=== PATIENT | female | born 1980 | race Two or more races ===

== ENCOUNTER 2024-09-03 23:14 | Emergency (ER) | payer MEDICAID, SELFPAY ==
[2024-09-03 23:15] VITALS: BP 184/93; PULSE 106; RESP 20; TEMP 37.8; O2SAT 97; BMI 40.3
--- NOTE | 2024-09-03 23:32 | PD.EDRME ---
Rapid Medical Screening Exam RME Arrival date/time: 09/03/24 23:14 44 year old female present to ED for c/o of headache, elevated bp and flu like sx. I have greeted and performed a focused initial assessment of this patient. A comprehensive ED assessment and evaluation of the patient, analysis of all test results, and completion of the medical decision making process will be conducted by additional ED providers. Chief Complaint: Headache Vital signs: Vital Signs Temperature 100.0 F 09/03/24 23:15 Pulse Rate 106 H 09/03/24 23:15 Respiratory Rate 20 09/03/24 23:15 Blood Pressure 184/93 H 09/03/24 23:15 Pulse Oximetry (%) 97 09/03/24 23:15
[2024-09-03 23:56] LABS: Basophils # (Auto) 0.1 Thou/mm3 (0.0-0.2); Basophils % (Auto) 1 % (0-2.5); Eosinophils # (Auto) 0.2 Thou/mm3 (0.0-0.5); Eosinophils % (Auto) 4 % (0-10); Hematocrit 37.2 % (36.0-46.0); Hemoglobin 11.9 g/dL (12.0-16.0); Immature Granulocytes % (Auto) 1 % (0-0); Immature Granulocytes Auto 0.03 Thou/mm3 (0.00-0.00); Lymphocytes # (Auto) 1.7 Thou/mm3 (1.0-4.8); Lymphocytes % (Auto) 29 % (10-50); Mean Corpuscular Hemoglobin 24.1 pg (25.0-35.0); Mean Corpuscular Volume 76 fL (80-100); Monocytes # (Auto) 0.6 Thou/mm3 (0.0-0.8); Monocytes % (Auto) 11 % (0-12); Neutrophils # (Auto) 3.2 Thou/mm3 (1.8-7.7); Neutrophils % (Auto) 55 % (37-80); Nucleated Red Blood Cell % 0 /100 WBC (0); Platelet Count 196 Thou/mm3 (140-440); RDW Standard Deviation 45.5 fL (36.4-46.3); Red Blood Count 4.93 Miln/mm3 (4.00-5.20); White Blood Count 5.8 Thou/mm3 (3.6-11.0)
[2024-09-04 00:07] LABS: Collection Type, Urine Voided; WBC,Urine 0 /hpf (0-5)
[2024-09-04 00:08] LABS: Alanine Aminotransferase 57 U/L (10-49); Albumin, Serum 4.5 gm/dL (3.5-5.0); Albumin/Globulin Ratio 1.3 (1.2-2.2); Alkaline Phosphatase 76 U/L (46-116); Anion Gap 6 (7-16); Aspartate Amino Transferase 37 U/L (0-34); BUN/Creatinine Ratio 15 Ratio (12-20); Bilirubin,Total 0.3 mg/dL (0.3-1.2); Blood Urea Nitrogen 9 mg/dL (9-23); Calcium 9.4 mg/dL (8.3-10.6); Calcium (Corrected) 9.4 mg/dL (8.5-10.1); Carbon Dioxide 23.8 mMol/L (20.0-31.0); Chloride 104 mMol/L (98-107); Creatinine (Component) 0.6 mg/dL (0.6-1.3); Estimated Creatinine Clearance 165.1 mL/min (>60); Globulin 3.5 gm/dL (2.3-3.5); Glucose 230 mg/dL (74-106); Osmolality,Calculated 273 (275-295); Potassium 3.9 mMol/L (3.4-5.1); Sodium 134 mMol/L (136-145); eGFR > 60 See Note
[2024-09-04 00:13] LABS: HCG,Qualitative Serum Negative
[2024-09-04 00:47] LABS: Bacteria,Urine 1+; Bilirubin,Urine Negative (Negative); Blood,Urine 1+ (Negative); Clarity,Urine Clear (Clear/Hazy); Color,Urine Yellow (Lt Yel-Yel); Glucose, Urine Negative (Negative); Ketones,Urine Negative (Negative); Leukocyte Esterase,Urine Negative (Negative); Nitrite,Urine Negative (Negative); Protein,Urine Trace (Neg - Trace); RBC,Urine 7 /hpf (0-3); Specific Gravity,Urine 1.026 (1.001-1.035); Squamous Epithelial Cell,Urine 6 /hpf (0-5); Urobilinogen,Urine Negative mg/dL (0.0-1.0)
[2024-09-04 01:53] VITALS: BP 178/98; PULSE 98; RESP 18; TEMP 37.1; O2SAT 99
--- NOTE | 2024-09-04 02:16 | EDNOTE_ITS ---
ED Headache RME/HPI General Chief Complaint: Headache Stated Complaint: HIGH BP;HEADACHE Source: patient Arrival date/time: 09/03/24 23:14 Mode of arrival: ambulatory Limitations: no limitations RME / HPI RME / HPI Narrative: 09/03/24 23:14 44 year old female present to ED for c/o of headache, elevated bp and flu like sx. I have greeted and performed a focused initial assessment of this patient. A comprehensive ED assessment and evaluation of the patient, analysis of all test results, and completion of the medical decision making process will be conducted by additional ED providers. Dr. Quezada?s Main ED Evaluation: 44 year-old female with h/o HTN says she?s been noncompliant with her medicines for the last week just to try it out. She is concerned as she now comes in with several complaints of headache, suprapubic fullness, bodyaches, potential fevers, cough. She denies chest pain or shortness of breath. She took her home blood pressure medicine, lisinopril 20 mg 10 PM last night and rechecked her blood pressure and it was systolic 180s when she decided to come to the emergency apartment. Related Data Home Medications ?Medication ?Instructions ?Recorded ?Confirmed vit no.95-ferrous 1 tab PO QDAY #0 tabs 03/05/16 06/19/19 fumarate 28 mg-folic acid 800 mcg tablet () Allergies Allergy/AdvReac Type Severity Reaction Status Date / Time No Known Allergies Allergy Verified 09/03/24 23:17 Review of Systems Review of Systems Systems Reviewed: All systems reviewed, normal except as documented Past Medical History Past Medical History NEUROLOGIC: Negative Neurological Disorders or Seizures CARDIAC: Negative Cardiac Disorders or Congestive Heart Failure RESPIRATORY: Negative Chronic Obstructive Pulmonary Disease (COPD) GASTROINTESTINAL: Positive Gastrointestinal Disorders and Gall Bladder Disease (LAP) GENITOURINARY: Negative Genitourinary Disorders or Renal Disease REPRODUCTIVE: Positive Previous Pregnancies (X5) MUSCULOSKELETAL: Negative Musculoskeletal Disorders ENDOCRINE: Positive Endocrine Disorders; Negative Diabetes Mellitus Type 1 or Diabetes Mellitus Type 2 (GESTATIONAL DIABETES) HEMATOLOGIC: Negative Blood Disorders, Anemia or Clotting Problems OTHER HISTORY: Negative Hospitalization, Autoimmune Disease, Shingles, Falls, Blood Transfusions, Anesthesia Reactions, Chemotherapy or Radiation Therapy Family History FAMILY HISTORY: Positive Family Cardiac Disorders (MOTHER (HTN)) and Family Surgery (MOTHER); Negative Family Psychiatric Problems, Family Respiratory Disorders, Family Gastrointestinal Problems, Family Cancer or Family Anesthesia Reaction Surgical History SURGICAL: Positive Section (X3) Social History SMOKING STATUS: Never smoker ED Exam Narrative Physical exam: GENERAL APPEARANCE: AxOx4, generally well-appearing, no acute distress. HEENT: NC, AT. MMM. EOMI, clear conjunctiva, oropharynx clear. NECK: Supple without lymphadenopathy. No stiffness or restricted ROM. HEART: Normal rate and regular rhythm, normal S1/S1, no m/r/g LUNGS: CTAB, moving air well. No crackles or wheezes are heard. ABDOMEN: Soft, nontender, nondistended with good bowel sounds heard. BACK: No midline C/T/L spine pain or deformity, No CVAT, no obvious deformity. EXTREMITIES: Without cyanosis, clubbing or edema. MUSCULOSKELETAL: FROM of all major joints, no chest tenderness NEUROLOGICAL: Grossly nonfocal. Alert and oriented, moving all 4 extremities. CN not formally tested but appear grossly intact. Observed to ambulate with normal gait. Skin: Warm and dry without any rash. General Limitations: Present no limitations Course Quality Measures none Orders Category Date Time Status Bedside COVID-19 Antigen Test NOW Care 09/03/24 23:31 Completed Bedside Influenza A&B Antigen Test NOW Care 09/03/24 23:32 Completed CBC Stat Lab 09/03/24 23:44 Completed CMP [Comprehensive Metabolic Panel] Stat Lab 09/03/24 23:44 Completed HCG,Qualitative Serum Stat Lab 09/03/24 23:44 Completed UA [Urinalysis] Stat Lab 09/03/24 23:31 Completed Urine Culture Stat Lab 09/03/24 23:31 Received Acetaminophen Tab [Tylenol Tab] Med 09/04/24 02:11 Discontinued 650 mg PO X1 ONE Vital Signs Vital signs: Vital Signs Temperature 100.0 F 09/03/24 23:15 Pulse Rate 106 H 09/03/24 23:15 Respiratory Rate 20 09/03/24 23:15 Blood Pressure 184/93 H 09/03/24 23:15 Pulse Oximetry (%) 97 09/03/24 23:15 Headache MDM Narrative MDM Narrative:: I have spoken with the patient and discussed today?s findings, in addition to providing specific details for the plan of care. Questions are answered and there is an agreement with the plan. Re-assessment at the time of disposition demonstrates that the patient is in no acute distress. The patient has remained stable throughout the entire ED visit and is without objective evidence for acute process requiring urgent intervention or hospitalization. The patient is stable for discharge; counseling is provided and documented as above, discussed symptomatic treatment and specific conditions for return. Scribe Attestation: I, Aftab Buckner, am scribing for and in the presence of Dr. Quezada. Provider Notation: Although this document has been carefully reviewed, there may still be some phonetic and other typographical errors. These errors are purely grammatical due to imperfections in the software program and should not be construed in any way to compromise the substance of the patient's medical care during this visit. Patient data External records reviewed:: [facility] previous records Clinical information provided by:: patient Social determinants that could affect healthcare access:: none Patient has the following chronic illnesses:: HTN How is presenting disease/condition affected by chronic disease/condition?: uneffected by Evaluation data The following diagnostics were reviewed and interpreted by me:: lab results Lab and/or radiology exams considered but not ordered:: None Interpretation Summary: See narrative Medications / Prescriptions Medications or Prescriptions considered but not ordered:: None Medication administrations:: Medication Administration History Discontinued Medications Acetaminophen (Acetaminophen 325 Mg Tablet) 650 mg PO X1 ONE Stop: 09/04/24 02:12 Last Admin: 09/04/24 02:28 Dose: 650 mg Documented By: EE As above Consultations Consultation(s) initiated? (list below): No Diagnosis Differential diagnosis headache: migraine, tension headache, headache and sinusitis Most likely diagnosis given after review of the tests above:: Headache, Hypertension Admission Indicated Admission indicated?: not indicated Admission Request Was there a request for admission?: No Disposition Plan Disposition Plan: Discharge Discharge Attestation Discharge Attestation: The patient and all family members were given an opportunity to ask questions and understood the discharge instructions. Discharge instructions specifically effects, indications for sooner follow up or return to the emergency department, and the expected course of current diagnosis. Patient condition: Stable Discharge Plan Plan Patient Disposition: HOME (Self Care) Prescriptions/Referrals Prescriptions/Med Rec: No Action PNV cmb#95-ferrous fumarate-FA [] 28 mg iron- 800 mcg Tablet 1 tab PO QDAY Qty: 0 Referrals: Lobo Ambrose MD [Primary Care Provider] - In 1 week Problem List Clinical Impression: Headache, Hypertension Patient/Caregiver Discharge Instructions Education Materials: Self-Care for Headaches, ED Hypertension, Established Additional Instructions: You can continue with your normal blood pressure medicines every morning. Starting tomorrow please keep a diary of your blood pressures and take these results to your primary care doctor visit on the . You can return to the emergency department sooner symptoms worsen or if he notes any new, concerning issues. Print Language: Indonesian Stand Alone Forms: Helen Award Info., Patient Portal Info Letter
[2024-09-04] MEDS: ACETAMINOPHEN 325 MG TABLET 650 MG PO (02:28)
== END 2024-09-04 02:31 | disposition home or self-care (01) ==
PROVIDERS: Physician Assistant; Emergency Provider Emergency Medicine; PCP Family Medicine
DX: R51.9 Headache, unspecified (principal); I10 Essential (primary) hypertension
CPT/HCPCS: 36415; 80053; 81001; 84703; 85025; 87086; 87400; 87811; 99283; A9270